=== PATIENT | male | born 1995 | race Two or more races ===

== ENCOUNTER 2018-03-19 20:28 | Emergency (ER) | payer OTHER ==
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
[2018-03-19] MEDS ORDERED: Ketorolac 60 MG/2 ML SDV IM ONE (20:46)
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
--- NOTE | 2018-03-20 10:53 | CR ---
EXAM DATE: 03/19/18 PATIENT'S AGE: 23 Patient: PHILLIP KYLE Facility: [place], [place] Site . Site : 1995 Study: XRay Spine Lumbar [id number]/12/2018 8:58:13 PM Ordering Physician: Doctor Boone Final Report: 3V LUMBAR SPINE: INDICATION: BACK PAIN IMPRESSION: Anatomic alignment. No compression fracture, spondylolysis or spondylolisthesis. Vertebral bodies and disc spaces unremarkable. Sacroiliac joints are unremarkable. Dictated by Syed Schultz MD @ Mar 19 2018 9:06PM (Electronic Signature) Report Signed by Proxy. [facility]
== END 2018-03-19 21:57 | disposition home or self-care (01) ==
LOC: MW.ED 20:28
DX: M54.5 Low back pain (principal); V89.2XXA Person injured in unspecified motor-vehicle accident, traffic, initial encounter
CPT/HCPCS: 70450; 70450-26; 72100; 72100-26; 72125; 72125-26; 99284; 99284-25

== ENCOUNTER 2018-12-06 16:53 | Emergency (ER) | payer BC ==
[2018-12-06] MEDS ORDERED: methylPREDNISolone Sodium Succinate 125 MG/2 ML SDV IM ONE (17:37)
--- NOTE | 2018-12-06 17:42 | EDM.PDOC ---
ED HPI GENERAL MEDICAL PROBLEM - General Chief Complaint: Skin Complaint Stated Complaint: RASH Time Seen by Provider: 12/06/18 17:35 Source of Information: Reports: Patient History Limitations: Reports: No Limitations - History of Present Illness INITIAL COMMENTS - FREE TEXT/NARRATIVE: HISTORY AND PHYSICAL: History of present illness: Patient is a 23-year-old male who presents to the emergency room with complaints of a rash which started on his torso and upper back and is now spread to his pelvis over the past few days. He states initially it was scattered and barely noticeable but has now progressively gotten worse over the past 24-48 hours. He has been taking Benadryl routinely without much relief. He denies any chemical exposure, new products or known allergies. No recent travel. Patient denies any fever, chills, headache, change in vision, syncope or near syncope. Denies any chest pain, back pain, shortness of breath or cough. Denies any abdominal pain, nausea, vomiting, diarrhea, constipation or dysuria. Has not noted any blood in urine or stool. Patient has been eating and drinking appropriately. Review of systems: As per history of present illness and below otherwise all systems reviewed and negative. Past medical history: As per history of present illness and as reviewed below otherwise noncontributory. Surgical history: As per history of present illness and as reviewed below otherwise noncontributory. Social history: See social history for further information Family history: As per history of present illness and as reviewed below otherwise noncontributory. Physical exam: General: Well-developed and well-nourished 23-year-old male. Alert and oriented. Nontoxic appearing and in no acute distress. HEENT: Atraumatic, normocephalic, pupils equal and reactive bilaterally, negative for conjunctival pallor or scleral icterus, mucous membranes moist, TMs normal bilaterally, throat clear, neck supple, nontender, trachea midline. No drooling or trismus noted. No meningeal signs. No hot potato voice noted. Lungs: Clear to auscultation, breath sounds equal bilaterally, chest nontender. Heart: S1S2, regular rate and rhythm without overt murmur Abdomen: Soft, nondistended, nontender. Negative for masses or hepatosplenomegaly. Negative for costovertebral tenderness. Pelvis: Stable nontender. Genitourinary: Deferred. Rectal: Deferred. Skin: Consolidated moderate erythema/raised hives to bilateral posterior shoulders going into the axilla and same with bilateral groin area. Areas are pruritic. Few hives noted to the mid back, chest and upper biceps bilaterally. Extremities: Atraumatic, moves all extremities per self without difficulty or deficits, negative for cords or calf pain. Neurovascular unremarkable. Neuro: Awake, alert, oriented. Cranial nerves II through XII unremarkable. Cerebellum unremarkable. Motor and sensory unremarkable throughout. Exam nonfocal. Notes: Will give the patient IV fluids and medications. I did have Dr Mcnulty look at this dermatitis as well. She is agreeable with plan of care and disposition plan. Supportive care measures were reviewed and discussed. Voices understanding and is agreeable to plan of care. Denies any further questions or concerns at this time. Diagnostics: None Therapeutics: IV fluids, Benadryl, Solu-Medrol Prescription: Medrol Dosepak Impression: Dermatitis Plan: 1. While symptomatic continue to routinely take Benadryl 50mg every 4-6 hours and Zantac 150mg twice daily. Take the Medrol dose pack as prescribed. 2. You may use topical calamine lotion, cool tempid oatmeal baths, Aveeno bath/ lotions. 3. Please follow up with your Primary care doctor tomorrow. Return to the ED as needed and as discussed. Definitive disposition and diagnosis as appropriate pending reevaluation and review of above. - Related Data Allergies Allergy/AdvReac Type Severity Reaction Status Date / Time No Known Allergies Allergy Verified 12/06/18 17:07 Home Meds: Home Meds . [No Known Home Meds] 03/19/18 [History] Past Medical History - Past Health History Medical/Surgical History: Denies Medical/Surgical History Social & Family History - Family History Family Medical History: Noncontributory - Tobacco Use Smoking Status *Q: Never Smoker - Caffeine Use Caffeine Use: Reports: Energy Drinks - Recreational Drug Use Recreational Drug Use: No ED ROS GENERAL - Review of Systems Review Of Systems: ROS reveals no pertinent complaints other than HPI. ED EXAM, SKIN/RASH Exam: See Below (See dictation) Course - Vital Signs Last Recorded V/S: Last Vital Signs Temp 98.2 F 12/06/18 17:05 Pulse 102 H 12/06/18 18:51 Resp 18 12/06/18 18:51 BP 120/69 12/06/18 18:51 Pulse Ox 98 12/06/18 18:51 - Orders/Labs/Meds Meds: Medications Discontinued Medications Generic Name Dose Route Start Last Admin Trade Name Darlyn PRN Reason Stop Dose Admin Diphenhydramine HCl 50 mg 12/06/18 17:43 12/06/18 18:05 Benadryl IVPUSH 12/06/18 17:44 Not Given ONETIME ONE Sodium Chloride 1,000 mls @ 999 mls/hr 12/06/18 17:43 12/06/18 17:59 Normal Saline IV 12/06/18 18:43 999 mls/hr STAT ONE Administration Methylprednisolone Sodium Succinate 125 mg 12/06/18 17:37 12/06/18 17:48 Solu-Medrol IM 12/06/18 17:38 Not Given ONETIME ONE Methylprednisolone Sodium Succinate 125 mg 12/06/18 17:43 12/06/18 17:59 Solu-Medrol IVPUSH 12/06/18 17:44 125 mg ONETIME ONE Administration Departure - Departure Time of Disposition: 19:30 Disposition: Home, Self-Care 01 Clinical Impression: Atopic dermatitis Qualifiers: Atopic dermatitis type: unspecified Qualified Code(s): L20.9 - Atopic dermatitis, unspecified - Discharge Information Instructions: Atopic Dermatitis Referrals: PCP,None [Primary Care Provider] - Forms: ED Department Discharge Additional Instructions: The following information is given to patients seen in the emergency department who are being discharged to home. This information is to outline your options for follow-up care. We provide all patients seen in our emergency department with a follow-up referral. The need for follow-up, as well as the timing and circumstances, are variable depending upon the specifics of your emergency department visit. If you don't have a primary care physician on staff, we will provide you with a referral. We always advise you to contact your personal physician following an emergency department visit to inform them of the circumstance of the visit and for follow-up with them and/or the need for any referrals to a consulting specialist. The emergency department will also refer you to a specialist when appropriate. This referral assures that you have the opportunity for follow-up care with a specialist. All of these measure are taken in an effort to provide you with optimal care, which includes your follow-up. Under all circumstances we always encourage you to contact your private physician who remains a resource for coordinating your care. When calling for follow-up care, please make the office aware that this follow-up is from your recent emergency room visit. If for any reason you are refused follow-up, please contact the [facility] Emergency Department at and asked to speak to the emergency department charge nurse. [facility] [address] [place] [id number] [facility] [address] [place] [id number] 1. While symptomatic continue to routinely take Benadryl 50mg every 4-6 hours and Zantac 150mg twice daily. Take the Medrol dose pack as prescribed. 2. You may use topical calamine lotion, cool tempid oatmeal baths, Aveeno bath/ lotions. 3. Please follow up with your Primary care doctor tomorrow. Return to the ED as needed and as discussed.
[2018-12-06] MEDS ORDERED: diphenhydrAMINE 50 MG/ML SDV IVPUSH ONE (17:43)
[2018-12-06] MEDS ORDERED: methylPREDNISolone Sodium Succinate 125 MG/2 ML SDV IVPUSH ONE (17:43)
[2018-12-06] MEDS ORDERED: Sodium Chloride 0.9% 1,000 ML IV ONE (17:43)
== END 2018-12-06 18:58 | disposition home or self-care (01) ==
LOC: MW.ED 16:53
DX: L20.9 Atopic dermatitis, unspecified (principal)
CPT/HCPCS: 96361; 96374; 99282; J2930; J7040

== ENCOUNTER 2019-03-25 19:49 | Emergency (ER) | payer OTHER, BC ==
[2019-03-25] MEDS ORDERED: Tetracaine HCl/PF 0.5% 4 ML Bottle EYEBOTH ONE (20:26)
--- NOTE | 2019-03-25 20:26 | EDM.PDOC ---
ED HPI GENERAL MEDICAL PROBLEM - General Chief Complaint: Eye Problems Stated Complaint: EYE COMPLAINT Time Seen by Provider: 03/25/19 20:26 Source of Information: Reports: Patient History Limitations: Reports: No Limitations - History of Present Illness INITIAL COMMENTS - FREE TEXT/NARRATIVE: HISTORY AND PHYSICAL: History of present illness: Patient is a 24-year-old male presents to the ED with complaint of eye pain. He states he was at work 2 hours ago cleaning some equipment when a rock hit him in the eye. He states it still feels like there is something in his eye. He states it is sensitive to light. Denies any visual changes. Review of systems: As per history of present illness and below otherwise all systems reviewed and negative. Past medical history: As per history of present illness and as reviewed below otherwise noncontributory. Surgical history: As per history of present illness and as reviewed below otherwise noncontributory. Social history: No reported history of drug or alcohol abuse. Family history: As per history of present illness and as reviewed below otherwise noncontributory. Physical exam: General: Patient sitting comfortably in no acute distress and nontoxic appearing HEENT: Left eye is injected. No FB seen in the eye or with lid eversion. There is a small area of uptake to the medial part of the eye with fluorscein stain. Atraumatic, normocephalic, pupils reactive, negative for conjunctival pallor or scleral icterus, mucous membranes moist, throat clear, neck supple, nontender, trachea midline. No meningeal signs. Lungs: Clear to auscultation, breath sounds equal bilaterally, chest nontender. Heart: S1S2, regular, negative for clicks, rubs, or overt murmur. Abdomen: Soft, nondistended, nontender. Negative for masses or hepatosplenomegaly. Negative for costovertebral tenderness. No rigidity, rebound , guarding. Pelvis: Stable nontender. Genitourinary: Deferred. Rectal: Deferred. Extremities: Atraumatic, negative for cords or calf pain. Neurovascular unremarkable. Neuro: Awake, alert, oriented. Cranial nerves II through XII unremarkable. Cerebellum unremarkable. Motor and sensory unremarkable throughout. Exam nonfocal. Notes: Diagnostics: [] Therapeutics: Prescriptions: Polytrim ophthalmic Impression: Corneal abrasion Plan: Use drops as instructed Follow up with ophthalmology Return to ED as needed as discussed Definitive disposition and diagnosis as appropriate pending reevaluation and review of above. left eye Pain Score (Numeric/FACES): 4 - Related Data Allergies Allergy/AdvReac Type Severity Reaction Status Date / Time No Known Allergies Allergy Verified 03/25/19 20:09 Home Meds: Home Meds Polymyxin B/Trimethoprim [PolyTrim Ophth Soln] 1 drop EYELF QID #1 bottle [Rx] Past Medical History - Past Health History Medical/Surgical History: Denies Medical/Surgical History Social & Family History - Family History Family Medical History: Noncontributory - Tobacco Use Smoking Status *Q: Never Smoker - Caffeine Use Caffeine Use: Reports: Energy Drinks - Recreational Drug Use Recreational Drug Use: No ED ROS GENERAL - Review of Systems Review Of Systems: ROS reveals no pertinent complaints other than HPI. ED EXAM GENERAL W FULL EYE - Physical Exam Exam: See Below (see dictation) Course - Vital Signs Last Recorded V/S: Last Vital Signs Temp 98.2 F 03/25/19 20:00 Pulse 63 03/25/19 20:00 Resp 18 03/25/19 20:00 BP 120/70 03/25/19 20:00 Pulse Ox 96 03/25/19 20:00 - Orders/Labs/Meds Meds: Medications Discontinued Medications Generic Name Dose Route Start Last Admin Trade Name Darlyn PRN Reason Stop Dose Admin Tetracaine HCl 1 ml 03/25/19 20:26 Tetracaine 0.5% Steri-Unit Lisseth EYEBOTH 03/25/19 20:27 ASDIRECTED ONE Departure - Departure Time of Disposition: 20:42 Disposition: Home, Self-Care 01 Condition: Good Clinical Impression: Corneal abrasion, left - Discharge Information Referrals: PCP,Unknown [Primary Care Provider] - Forms: ED Department Discharge Additional Instructions: The following information is given to patients seen in the emergency department who are being discharged to home. This information is to outline your options for follow-up care. We provide all patients seen in our emergency department with a follow-up referral. The need for follow-up, as well as the timing and circumstances, are variable depending upon the specifics of your emergency department visit. If you don't have a primary care physician on staff, we will provide you with a referral. We always advise you to contact your personal physician following an emergency department visit to inform them of the circumstance of the visit and for follow-up with them and/or the need for any referrals to a consulting specialist. The emergency department will also refer you to a specialist when appropriate. This referral assures that you have the opportunity for follow-up care with a specialist. All of these measure are taken in an effort to provide you with optimal care, which includes your follow-up. Under all circumstances we always encourage you to contact your private physician who remains a resource for coordinating your care. When calling for follow-up care, please make the office aware that this follow-up is from your recent emergency room visit. If for any reason you are refused follow-up, please contact the [facility] at and asked to speak to the emergency department charge nurse. [facility] [address] [place] [id number] [id number] Use drops as instructed Follow up with ophthalmology Return to ED as needed as discussed
[2019-03-25] MEDS ORDERED: Erythromycin Base 0.5% Ophth Oint 1 GM Tube EYEBOTH ONE (20:38)
== END 2019-03-25 21:04 | disposition home or self-care (01) ==
LOC: MW.ED 19:49
DX: S05.02XA Injury of conjunctiva and corneal abrasion without foreign body, left eye, initial encounter (principal); W22.8XXA Striking against or struck by other objects, initial encounter; Y99.0 Civilian activity done for income or pay
CPT/HCPCS: 99283; A9270; 99282